=== PATIENT | female | born 1980 | race Caucasian/White ===

== ENCOUNTER 2017-06-04 11:25 | Inpatient (IN) | payer OTHER ==
[2017-06-04] MEDS ORDERED: OLIVE OIL 118 ML BTL MISC PRN (12:33)
[2017-06-04] MEDS ORDERED: TERBUTALINE SULFATE 1 MG/ML VIAL IV PRN (12:33)
[2017-06-04] MEDS ORDERED: OXYTOCIN 20 UNIT in LR 1,000 ML IV PRN (12:33)
[2017-06-04] MEDS ORDERED: EPSOM SALT 454 GM TP PRN (12:33)
[2017-06-04] MEDS ORDERED: LR 1,000 ML IV PRN (12:33)
[2017-06-04 13:00] LABS: PLATELET COUNT 188 10^3/uL (150-400)
[2017-06-04] MEDS: MISOPROSTOL 100 MCG TAB PO SCH ×3 (13:30→22:21)
[2017-06-04] MEDS ORDERED: LIDOCAINE 1% 300 MG/30 ML SDV ONE (15:02)
[2017-06-04] MEDS ORDERED: OLIVE OIL 118 ML BTL ONE (15:02)
[2017-06-04] MEDS ORDERED: MISOPROSTOL 200 MCG TAB ONE (15:03)
[2017-06-04] MEDS ORDERED: OXYTOCIN 10 UNIT/ML VIAL ONE (15:03)
[2017-06-04] MEDS ORDERED: AMMONIA AROMATIC 1 EACH AMP IH ONE (15:03)
[2017-06-04] MEDS ORDERED: TERBUTALINE SULFATE 1 MG/ML VIAL ONE (15:03)
[2017-06-04] MEDS ORDERED: ACETAMINOPHEN 325 MG TAB PO PRN (17:49)
[2017-06-04] MEDS ORDERED: HYDROCODONE/APAP 5/325 TAB PO PRN (17:49)
[2017-06-04] MEDS ORDERED: SIMETHICONE 80 MG TAB CHEW PO PRN (17:49)
[2017-06-04] MEDS ORDERED: HYDROCORTISONE 0.5% CREAM TP PRN (17:49)
--- NOTE | 2017-06-04 17:54 | PDGENHP ---
History and Physical - Chief Complaint c/o SROM @ 0400 - History of Present Illness This is a [id number] with IUP@ 38-4wks that presents to L&D with c/o SROM- clear odorless fluid at 0400. She reports irregular contractions since then, denies any bleeding. Reports +FM. She denies any headaches, visual changes, epigastric pain. She is planning an unmedicated . History Information - Allergies/Home Medication List Allergies/Adverse Reactions: doxycycline Allergy (Verified 04/26/14 22:41) duracef Allergy (Uncoded 04/26/14 22:44) I have personally reviewed and updated: family history, medical history, social history, surgical history Past Medical History: Rubella low immune. high BMI. habitual aborter. Parvo nonimmune. h/o depression - Past Medical History Additional medical history: N96 - Surgical History Reports: no pertinent surgical hx - Social History Smoking Status: Never smoked Alcohol Use: None Drug Use: None Review of Systems Review of Systems: ROS: 10pt was reviewed & negative except for what was stated in HPI & below Constitutional: Reports: no symptoms EENMT: Reports: no symptoms Cardiac: Reports: no symptoms Respiratory: Reports: no symptoms Gastrointestinal: Reports: no symptoms Genitourinary: Reports: no symptoms Muscolosketal: Reports: no symptoms Neurological: Reports: anxiety Hematologic/Lymphatic: Reports: no symptoms Immunologic/Allergy: Reports: no symptoms Physical Exam Physical Exam: SVE: /-3 Constitutional: no apparent distress, appears nourished Eyes: PERRL Ears, Nose, Mouth, Throat: moist mucous membranes, hearing normal, ears appear normal Cardiovascular: regular rate and rhythym, no murmur, rub, or gallop Respiratory: no respiratory distress, no rales or rhonchi, clear to auscultation Gastrointestinal: normoactive bowel sounds, soft, non-tender abdomen Skin: warm, normal color Musculoskeletal: full muscle strength, no muscle tenderness Neurologic: AAOx3 Psychiatric: interacting appropriately, anxious Lab Data & Imaging Review 06/04/17 12:50 WBC 9.06 10^3/uL (3.80-9.50) 06/04/17 12:50 RBC 4.18 10^6/uL (4.18-5.33) 06/04/17 12:50 Hgb 13.4 g/dL (12.6-16.3) 06/04/17 12:50 Hct 38.1 % (38.0-47.0) 06/04/17 12:50 MCV 91.1 fL (81.5-99.8) 06/04/17 12:50 MCH 32.1 pg (27.9-34.1) 06/04/17 12:50 MCHC 35.2 g/dL (32.4-36.7) 06/04/17 12:50 RDW 13.2 % (11.5-15.2) 06/04/17 12:50 Plt Count 188 10^3/uL (150-400) 06/04/17 12:50 MPV 12.6 fL (8.7-11.7) H 06/04/17 12:50 Neut % (Auto) 76.3 % (39.3-74.2) H 06/04/17 12:50 Lymph % (Auto) 16.2 % (15.0-45.0) 06/04/17 12:50 Evangeline % (Auto) 6.0 % (4.5-13.0) 06/04/17 12:50 Eos % (Auto) 0.1 % (0.6-7.6) L 06/04/17 12:50 Baso % (Auto) 0.2 % (0.3-1.7) L 06/04/17 12:50 Nucleat RBC Rel Count 0.0 % (0.0-0.2) 06/04/17 12:50 Absolute Neuts (auto) 6.91 10^3/uL (1.70-6.50) H 06/04/17 12:50 Absolute Lymphs (auto) 1.47 10^3/uL (1.00-3.00) 06/04/17 12:50 Absolute Monos (auto) 0.54 10^3/uL (0.30-0.80) 06/04/17 12:50 Absolute Eos (auto) 0.01 10^3/uL (0.03-0.40) L 06/04/17 12:50 Absolute Basos (auto) 0.02 10^3/uL (0.02-0.10) 06/04/17 12:50 Absolute Nucleated RBC 0.00 10^3/uL (0-0.01) 06/04/17 12:50 Immature Gran % 1.2 % (0.0-1.1) H 06/04/17 12:50 Immature Gran # 0.11 10^3/uL (0.00-0.10) H 06/04/17 12:50 Patient ABO/Rh A POSITIVE 06/04/17 12:50 Antibody Screen NEGATIVE 06/04/17 12:50 Assessment & Plan Assessment: [id number] with IUP@38-4wks PROM- clear @ 0400 GBS Negative cat 1 FHR tracing Plan: Admit to L&D cytotec PRN anticipate
[2017-06-04] MEDS: IBUPROFEN 600 MG TAB PO PRN (17:56)
--- NOTE | 2017-06-04 18:00 | OBDEL ---
Info Type: Vaginal Presentation at Delivery: Vertex L&D Analgesia/Anesthesia Type: None GBS+: No Intrapartum Medications: Generic Name Dose Route Start Last Admin Trade Name Freq PRN Reason Stop Dose Admin Ibuprofen 600 mg 06/04/17 12:33 06/04/17 17:56 Motrin PO 12/01/17 12:32 600 mg Q6HRS PRN Administration post , inflammation Misoprostol 50 mcg 06/04/17 14:00 06/04/17 13:30 Cytotec PO 12/01/17 13:59 50 mcg Q4 JINNY Administration - Hospital Course Intrapartum: 06/04/17 17:58 Admission for PROM, cytotec 50mcg x 1 dose rapidly progressed Indications for Delivery: SROM Vaginal Delivery - Delivery Provider Delivery Physician/CNM: Shila Vicente - Labor and Delivery Onset of Contractions Date: 06/04/17 Onset of Contractions Time: 15:00 Onset of Contractions Type: Augmented Rupture of Membranes Date: 06/04/17 Rupture of Membranes Time: 04:00 Rupture of Membranes Type: Spontaneous Amniotic Fluid Color: Clear Dilation Complete Date: 06/04/17 Dilation Complete Time: 17:01 Placenta Delivery Date: 06/04/17 Placenta Delivery Time: 17:21 Total Hours of Labor: 2 Laceration: 2nd Degree Repair: 3-0 Vaginal Sponge Count Correct: Yes Vaginal Needle Count Correct: Yes Vaginal Sweep Performed: Yes EBL: 200 Delivery Events: None [place] [facility] Delivery Date: 06/04/17 Delivery Time: 17:12 SARAI: 06/14/17 Gestational Age: 38 week(s) and 5 day(s) Sex of : Male Score (1 Min): 8 Score (5 Min): 9 ICD10 Worksheet Patient Problems: Problems Problem Status Onset (normal spontaneous vaginal delivery) Acute PROM (premature rupture of membranes) Acute Arthritis, juvenile rheumatoid Acute BMI greater than 30 Acute Gestational hypertension Acute History of depression Acute (spontaneous vaginal delivery) Acute - ICD10 Problem Qualifiers (1) PROM (premature rupture of membranes) (2) (normal spontaneous vaginal delivery)
[2017-06-05] MEDS: IBUPROFEN 600 MG TAB PO PRN ×4 (00:09→18:05)
--- NOTE | 2017-06-05 08:34 | OBPP ---
Progress Note Assessment/Plan: Assessment: [id number] s/p PPD#1 Plan: Routine PP care cont plan to d/c home 24-48hrs 06/05/17 08:31 Subjective/ Course: 06/05/17 08:32 Pt doing well, she has no complaints; reports min bleeding and cramping. She is ambulating well. She is voiding without difficulty. She is . FOB @ BS and supportive. Objective: 06/05/17 05:42 Patient ABO/Rh A POSITIVE 06/04/17 12:50 Temp Pulse Resp BP Pulse Ox 36.6 C 98 16 122/79 H 92 06/04/17 23:08 06/04/17 23:08 06/04/17 23:08 06/04/17 23:08 06/04/17 23:08 Exam : Constitutional: WNWF, A&Ox3 Heart: RRR Chest: CTA-B Abdomen: soft, nontender Uterus: firm @ U Lochia: mod rubra perineum: healing, sutures intact Extremities: neg ping's sign, trace edema Uterine Position/Fundal Height: Midline Uterine Tone: Firm
[2017-06-05] MEDS: DOCUSATE SODIUM 100 MG CAP PO PRN (08:40)
[2017-06-05 20:29] VITALS: RESP 16
[2017-06-06] MEDS: IBUPROFEN 600 MG TAB PO PRN ×3 (00:07→11:44)
[2017-06-06 07:57] VITALS: BP 128/82; PULSE 87; TEMP 97.2; O2SAT 97
[2017-06-06] MEDS: DOCUSATE SODIUM 100 MG CAP PO PRN (08:45)
--- NOTE | 2017-06-06 15:25 | OBPP ---
Progress Note Assessment/Plan: Assessment: 36 yo WF PPD# 2 doing well. Ready for DC home today. Plan: Discharge home today. F/u in 4 weeks for PP depression screening. F/u @ 6 weeks for routine PP visit. 06/06/17 15:21 Subjective/ Course: 06/05/17 08:32 Pt doing well, she has no complaints; reports min bleeding and cramping. She is ambulating well. She is voiding without difficulty. She is . FOB @ BS and supportive. 06/06/17 15:23 Patient is doing well. . Reports normal voiding, minimal pain, minimal lochia, desires DC home today. Objective: 06/05/17 05:42 Patient ABO/Rh A POSITIVE 06/04/17 12:50 Temp Pulse Resp BP Pulse Ox 36.2 C 87 16 128/82 H 97 06/06/17 07:57 06/06/17 07:57 06/06/17 07:57 06/06/17 07:57 06/06/17 07:57 General: NAD Lungs: clear to auscultation in all [place] Heart: RRR Abdomen: soft, non-distended, fundus firm and below umbilicus Extremities: no excessive edema Uterine Position/Fundal Height: Umbilicus -2 Uterine Tone: Firm Physical Exam - Physical Exam EENT: normal ENT inspection Respiratory: lungs clear, normal breath sounds Cardiac/Chest: regular rate, rhythm Abdomen: normal bowel sounds, non-tender, soft, other (fundus firm, below umbilicus) Extremities: normal inspection Skin: normal color, warm/dry Neuro/Psych: no motor/sensory deficits, alert, normal mood/affect, oriented x 3
--- NOTE | 2017-06-06 15:27 | OBGCSDC ---
General Delivery Information - General Info : 5 Para: 2 Abortions: 3 Type: Vaginal L&D Analgesia/Anesthesia Type: None Admission Date: 06/04/17 Labs: Patient ABO/Rh A POSITIVE 06/04/17 12:50 Hct 37.1 % (38.0-47.0) L 06/05/17 05:42 - Hospital Course Intrapartum: 06/04/17 17:58 Admission for PROM, cytotec 50mcg x 1 dose rapidly progressed : 06/05/17 08:32 Pt doing well, she has no complaints; reports min bleeding and cramping. She is ambulating well. She is voiding without difficulty. She is . FOB @ BS and supportive. 06/06/17 15:23 Patient is doing well. . Reports normal voiding, minimal pain, minimal lochia, desires DC home today. Vaginal - Delivery Provider Delivery Physician/CNM: Shila Vicente - Diagnosis Labor: Augmented Rupture of Membranes Type: Spontaneous Amniotic Fluid Color: Clear Laceration: 2nd Degree Repair: 3-0 Delivery Events: None - Delivery EBL: 200 [place] [facility] Delivery Date: 06/04/17 Delivery Time: 17:12 SARAI: 06/14/17 Gestational Age: 38 week(s) and 6 day(s) Sex of Infant: Male Weight (gm): 0 g Score (1 Min): 8 Score (5 Min): 9 Discharge Information - Discharge Information Condition: Good Instruction/Follow Up: Four Weeks, Six Weeks
== END 2017-06-06 14:15 | disposition home or self-care (01) | DRG 775 ==
LOC: FLD 11:25 → FOB 20:50
PROVIDERS: ADMIT Advanced Practice Midwife; ATTEND Obstetrics & Gynecology Gynecology
PROC: 3E0P7GC Introduction of Other Therapeutic Substance into Female Reproductive, Via Natural or Artificial Opening (ICD-10-PCS; principal; 2017-06-04)
PROC: 10E0XZZ Delivery of Products of Conception, External Approach (ICD-10-PCS; principal; 2017-06-04)
PROC: 0KQM0ZZ Repair Perineum Muscle, Open Approach (ICD-10-PCS; principal; 2017-06-04)
DX: O70.1 Second degree perineal laceration during delivery (principal); Z3A.38 38 weeks gestation of pregnancy; N96 Recurrent pregnancy loss; Z68.37 Body mass index [BMI] 37.0-37.9, adult; Z37.0 Single live birth
CPT/HCPCS: J3105